=== PATIENT | female | born 1990 | race Caucasian/White ===

== ENCOUNTER 2022-10-11 16:55 | Observation (INO) | payer OTHER, SELFPAY ==
[2022-10-11 17:02] VITALS: BP 84/58; PULSE 67; RESP 18; TEMP 36.6; O2SAT 98; BMI 27.6
--- NOTE | 2022-10-11 17:38 | CT_ITS ---
[address] [address] Patient Name: PUSHPA STORY MRN: [id number] date: 1990 Sex: F Assigned Patient Location: ER Current Patient Location: ER Accession/Order Number: [id number] Exam Date: 10/11/2022 18:27 Report Date: 10/11/2022 18:56 At the request of: FRAN CRUZ Procedure: CT abdomen pelvis w con CT ABDOMEN AND PELVIS WITH CONTRAST: INDICATION: Abdominal pain. COMPARISON: None. TECHNIQUE: Helical CT images of the abdomen and pelvis were obtained after the administration of intravenous contrast. Dose reduction techniques were achieved by using automated exposure control and/or adjustment of mA and/or kV according to patient size and/or use of iterative reconstruction technique. FINDINGS: LOWER CHEST: The visualized lung bases are clear. LIVER: Unremarkable. GALLBLADDER AND BILIARY SYSTEM: Unremarkable. SPLEEN: Unremarkable. PANCREAS: Unremarkable. ADRENAL GLANDS: Unremarkable. KIDNEYS AND URETERS: The kidneys enhance symmetrically. There is no hydronephrosis. No focal renal lesions. BLADDER: Under distended. GASTROINTESTINAL TRACT: The appendix is dilated and fluid-filled measuring up to 1 cm with mild surrounding inflammatory changes compatible with acute appendicitis. No extraluminal air or fluid collections. No evidence of bowel obstruction. VASCULATURE: Unremarkable. RETROPERITONEUM AND LYMPH NODES: No lymphadenopathy or mass. PERITONEUM/MESENTERY: No abdominal ascites. No free air. PELVIS: A small amount of free fluid in the pelvis. No lymphadenopathy. BODY WALL: Tiny fat-containing umbilical hernia. BONES: No acute abnormality. CT/CT abdomen pelvis w con IMPRESSION: Acute appendicitis. No extraluminal air or fluid collections. Critical results were NOTIFIED by TELEPHONE BY Dr. Bertram Mittal MD to fran cruz [employer] At 10/11/2022 6:51 PM EDT. Electronically authenticated by: BERTRAM MITTAL Date: 10/11/2022 18:56
--- NOTE | 2022-10-11 17:38 | ED.ABDPAIN1 ---
HPI - Abdominal Pain General Chief Complaint: Abdominal Pain Stated Complaint: Adbominal Pain Time Seen by Provider: 10/11/22 17:06 Mode of arrival: walk-in Limitations: no limitations History of Present Illness HPI narrative: patient is a 31-year-old female presents to the emergency department for the evaluation of mid abdominal pain that began this morning. Patient reports nausea but has had no vomiting or diarrhea. No urinary symptoms. She has had no fevers or vomiting. She states while in the car driving from [employer], her vision went black and blacked out due to pain. She denies that she passed out, fell or lost consciousness. she is not concerned for . She apparently went to a different local emergency department but was told that there were fourteen people ahead of me and she could not wait with the amount of pain she is in. She is sitting upright on exam cart with her legs crossed at time of initial interview. She denies any previous abdominal surgeries, she denies any history of inflammatory bowel conditions or chronic gastrointestinal conditions. Related Data Home Medications Medication Instructions Recorded Confirmed phentermine 37.5 mg capsule 37.5 mg PO DAILY 10/11/22 10/11/22 Allergies Allergy/AdvReac Type Severity Reaction Status Date / Time No Known Drug Allergies Allergy Verified 10/11/22 17:02 Review of Systems ROS Constitutional Denies: fever or chills Ears, nose, mouth, and throat Denies: throat pain Cardiovascular Denies: chest pain Respiratory Denies: shortness of breath or cough Gastrointestinal Reports: abdominal pain and nausea; Denies: vomiting or diarrhea Musculoskeletal Denies: back pain or neck pain Integumentary/Breast Denies: rash Hematologic/Lymphatic Denies: easy bruising [facility] Social History Smoking status: Current every day smoker Exam Narrative Exam Narrative: Gen.: Awake, alert, in no distress Head: Normocephalic, atraumatic ENT: Moist mucous membranes Respiratory: No respiratory distress Gastrointestinal: Abdomen is soft, nondistended and diffusely tender to palpation of the mid abdomen with no guarding or rebound; no flank tenderness Extremities: Moves extremities equally, no injuries noted Psych: Normal mood and affect Neuro: No focal neuro deficit Skin: Warm, dry, intact Constitutional Vital Signs, click to edit/add: Last Vital Signs Temp 97.9 F 10/11/22 17:02 Pulse 67 10/11/22 17:02 Resp 18 10/11/22 17:02 BP 84/58 L 10/11/22 17:02 Pulse Ox 98 10/11/22 17:02 O2 Del Method Room Air 10/11/22 17:02 Course Vital Signs Vital signs: Vital Signs Temperature 97.9 F 10/11/22 17:02 Pulse Rate 67 10/11/22 17:02 Respiratory Rate 18 10/11/22 17:02 Blood Pressure 84/58 L 10/11/22 17:02 Pulse Oximetry 98 10/11/22 17:02 Oxygen Delivery Method Room Air 10/11/22 17:02 Temperature 97.9 F 10/11/22 17:02 Pulse Rate 67 10/11/22 17:02 Respiratory Rate 18 10/11/22 17:02 Blood Pressure 84/58 L 10/11/22 17:02 Pulse Oximetry 98 10/11/22 17:02 Oxygen Delivery Method Room Air 10/11/22 17:02 MDM - Abdominal Pain MDM Narrative Medical decision making narrative: patient treated with morphine, Levsin, Zofran and IV fluids with improvement of her blood pressure. She has mild leukocytosis, nitrite positive urinary tract infection noted on urine specimen. test is negative. CT of the abdomen and pelvis with IV contrast shows the patient has acute appendicitis, this was discussed with the radiologist over the phone. I contacted Dr. Alves for general surgery ([id number]) who will admit the patient to his service with surgery for appendicitis tomorrow morning. Clear liquid fluids are okay until midnight, patient reevaluated by attending physician, additional pain medication given prior to admission. Patient is stable with stable vital signs at time of admission to [facility]. Medical Records Attestation: I reviewed the patient's medical records. Lab Data Attestation: I reviewed the patient's lab results. Labs: Lab Results 10/11/22 10/11/22 Range/Units 17:35 17:44 WBC 14.8 H (4.0-11.0) 10^3/uL RBC 4.20 (4.20-5.40) 10^6/uL Hgb 12.4 (12.0-16.0) g/dL Hct 37.2 (36.0-48.0) % MCV 88.6 (81.0-99.0) fL MCH 29.5 (26.7-34.0) pg MCHC 33.3 (29.9-35.2) g/dL RDW 13.2 (11.0-15.0) % Plt Count 210 (150-450) 10^3/uL MPV 10.8 (9.5-13.5) fL Neut % (Auto) 89.3 H (43.0-75.0) % Lymph % (Auto) 3.0 L (20.5-60.0) % [place] % (Auto) 7.1 (1.7-12.0) % Eos % (Auto) 0.1 L (0.9-7.0) % Baso % (Auto) 0.1 L (0.2-2.0) % Neut # (Auto) 13.2 H (1.4-6.5) 10^3/uL Lymph # (Auto) 0.5 L (1.2-3.8) 10^3/uL [place] # (Auto) 1.1 H (0.3-0.8) 10^3/uL Eos # (Auto) 0.0 (0.0-0.7) 10^3/uL Baso # (Auto) 0.0 (0.0-0.1) 10^3/uL Abs Immat Gran (auto) 0.06 H (0.00-0.03) 10^3/uL Imm/Tot Granulo (auto) 0.4 (0.0-0.5) % Sodium 137 (136-145) mmol/L Potassium 3.3 L (3.5-5.1) mmol/L Chloride 103 (98-107) mmol/L Carbon Dioxide 24.9 (21.0-32.0) mmol/L Anion Gap 12.4 BUN 15.0 (7.0-18.0) mg/dL Creatinine 0.85 (0.55-1.02) mg/dL Est GFR ( Amer) >60 (>=60) Est GFR (Non-Af Amer) >60 (>=60) BUN/Creatinine Ratio 17.6 Glucose 134 H (74-106) mg/dL Lactate 1.5 (0.4-2.0) mmol/L Calcium 8.8 (8.5-10.1) mg/dL Total Bilirubin 1.0 (0.2-1.0) mg/dL AST 11 L (15-37) U/L ALT 17 (14-59) U/L Alkaline Phosphatase 58 (46-116) U/L Total Protein 7.5 (6.4-8.2) g/dL Albumin 4.5 (3.4-5.0) g/dL Globulin 3.0 g/dL Albumin/Globulin Ratio 1.5 Lipase 40.0 L (73.0-393.0) U/L Serum HCG, Qual Negative (NEGATIVE) Urine Color Yellow (YELLOW) Urine Clarity Slightly cloudy A (CLEAR) Urine pH 7.0 (5.0-9.0) Ur Specific [place] 1.020 (1.005-1.025) Urine Protein Trace (NEG/TRACE) mg/dL Urine Glucose (UA) Negative (NEGATIVE) mg/dL Urine Ketones >=80 A (NEGATIVE) mg/dL Urine Occult Blood Negative (NEGATIVE) Urine Nitrite Positive A (NEGATIVE) Urine Bilirubin Negative (NEGATIVE) Urine Urobilinogen 1.0 (0.2-1.0) EU/dL Ur Leukocyte Esterase Negative (NEGATIVE) Urine RBC None seen (0-2) #/HPF Urine WBC 0-2 A (NONE SEEN) #/HPF Ur Squamous Epith Cells Moderate A (NONE/RARE) #/LPF Urine Crystals None seen (None Seen) #/HPF Urine Bacteria Large A (NONE SEEN) #/HPF Urine Casts None seen (NONE SEEN) #/LPF Urine Mucus None seen (NONE SEEN) Ur Culture Indicated? Yes Imaging Data CT scan - abdomen: Attestation: I have reviewed the pertinent imaging results. Radiologist's impression: Procedure: CT abdomen pelvis w con CT ABDOMEN AND PELVIS WITH CONTRAST: INDICATION: Abdominal pain. COMPARISON: None. TECHNIQUE: Helical CT images of the abdomen and pelvis were obtained after the administration of intravenous contrast. Dose reduction techniques were achieved by using automated exposure control and/or adjustment of mA and/or kV according to patient size and/or use of iterative reconstruction technique. FINDINGS: LOWER CHEST: The visualized lung bases are clear. LIVER: Unremarkable. GALLBLADDER AND BILIARY SYSTEM: Unremarkable. SPLEEN: Unremarkable. PANCREAS: Unremarkable. ADRENAL GLANDS: Unremarkable. KIDNEYS AND URETERS: The kidneys enhance symmetrically. There is no hydronephrosis. No focal renal lesions. BLADDER: Under distended. GASTROINTESTINAL TRACT: The appendix is dilated and fluid-filled measuring up to 1 cm with mild surrounding inflammatory changes compatible with acute appendicitis. No extraluminal air or fluid collections. No evidence of bowel obstruction. VASCULATURE: Unremarkable. RETROPERITONEUM AND LYMPH NODES: No lymphadenopathy or mass. PERITONEUM/MESENTERY: No abdominal ascites. No free air. PELVIS: A small amount of free fluid in the pelvis. No lymphadenopathy. BODY WALL: Tiny fat-containing umbilical hernia. BONES: No acute abnormality. IMPRESSION: Acute appendicitis. No extraluminal air or fluid collections. Critical results were NOTIFIED by TELEPHONE BY Dr. Heather Mittal MD to fran meyer [facility] At 10/11/2022 6:51 PM EDT. Electronically authenticated by: HEATHER MITTAL Date: 10/11/2022 18:56 Discharge Plan Discharge Chief Complaint: Abdominal Pain Clinical Impression: Abdominal pain, Acute appendicitis Patient Disposition: Admitted as Observation Time of Disposition Decision: 19:07 Condition: Good Prescriptions / Home Meds: No Action phentermine 37.5 mg capsule 37.5 mg PO DAILY Rx Instructions: must administer 30 minutes before or 1-2 hours after breakfast
[2022-10-11 18:01] LABS: Bilirubin Urine NEGATIVE (NEGATIVE); Blood Urine NEGATIVE (NEGATIVE); Color Urine YELLOW (YELLOW); Glucose Urine UA NEGATIVE (NEGATIVE); Ketones Urine >=80 mg/dL (NEGATIVE); Leukocyte Esterase Urine NEGATIVE (NEGATIVE); Nitrite Urine POSITIVE (NEGATIVE); Protein Urine TRACE mg/dL (NEG/TRACE)
[2022-10-11] MEDS: ONDANSETRON PF 4 MG/2 ML VIAL IV ×2 (18:01→22:05)
[2022-10-11] MEDS: MORPHINE SULFATE 4 MG/ML VIAL IV (18:01)
[2022-10-11] MEDS: HYOSCYAMINE SULFATE 0.125 MG TAB.SUBL SL (18:01)
[2022-10-11] MEDS: 0.9 % SODIUM CHLORIDE 1,000 ML 1000 ML IV (18:01)
[2022-10-11 18:04] LABS: Basophils Percent Auto 0.1 % (0.2-2.0); Eosinophils Percent Auto 0.1 % (0.9-7.0); Hematocrit 37.2 % (36.0-48.0); Hemoglobin 12.4 g/dL (12.0-16.0); Immature Granulocytes Abs Auto 0.06 10^3/uL (0.00-0.03); Immature Granulocytes Pct Auto 0.4 % (0.0-0.5); Lymphocytes Absolute Auto 0.5 10^3/uL (1.2-3.8); Mean Corpuscular HGB Conc 33.3 g/dL (29.9-35.2); Mean Corpuscular Hemoglobin 29.5 pg (26.7-34.0); Mean Corpuscular Volume 88.6 fL (81.0-99.0); Mean Platelet Volume 10.8 fL (9.5-13.5); Monocytes Absolute Auto 1.1 10^3/uL (0.3-0.8); Monocytes Percent Auto 7.1 % (1.7-12.0); Neutrophils Absolute Auto 13.2 10^3/uL (1.4-6.5); Neutrophils Percent Auto 89.3 % (43.0-75.0); Platelet Count 210 10^3/uL (150-450); Red Cell Distribution Width 13.2 % (11.0-15.0); White Blood Count 14.8 10^3/uL (4.0-11.0)
[2022-10-11 18:05] LABS: Clarity Urine SLIGHTLY CLOUDY (CLEAR); Urine Microscopic Indicated YES; WBC Urine 0-2 #/HPF (NONE SEEN)
[2022-10-11 18:06] LABS: Bacteria Urine LARGE #/HPF (NONE SEEN); Cast Seen? NONE SEEN #/LPF (NONE SEEN); Crystals Seen? None Seen #/HPF (None Seen); Mucus Urine NONE SEEN (NONE SEEN); RBC Urine NONE SEEN #/HPF (0-2); Squamous Epithelial Cell Urine MODERATE #/LPF (NONE/RARE); Urine Culture Indicated YES
[2022-10-11 18:10] VITALS: BP 112/67; O2SAT 100
[2022-10-11 18:20] VITALS: O2SAT 100
[2022-10-11 18:23] LABS: Alanine Aminotransferase 17 U/L (14-59); Albumin Globulin Ratio 1.5; Albumin Level 4.5 g/dL (3.4-5.0); Alkaline Phosphatase 58 U/L (46-116); Anion Gap 12.4; Aspartate Amino Transferase 11 U/L (15-37); BUN Creatinine Ratio 17.6; Calcium 8.8 mg/dL (8.5-10.1); Carbon Dioxide 24.9 mmol/L (21.0-32.0); Chloride 103 mmol/L (98-107); Estimated GFR (African America >60 (>=60); Estimated GFR (Non-African Ame >60 (>=60); Glucose 134 mg/dL (74-106); HCG Qualitative NEGATIVE (NEGATIVE); Potassium 3.3 mmol/L (3.5-5.1); Sodium 137 mmol/L (136-145); Total Protein 7.5 g/dL (6.4-8.2)
[2022-10-11 18:34] LABS: Lactate/Lactic Acid 1.5 mmol/L (0.4-2.0)
[2022-10-11] MEDS: HYDROMORPHONE HCL 0.5 MG/0.5 ML SYRINGE IV (19:31)
[2022-10-11] MEDS: ERTAPENEM SODIUM 1 GM in 0.9 % SODIUM CHLORIDE 50 ML IV (19:31)
[2022-10-11 20:20] VITALS: BP 120/70; PULSE 74; RESP 16; TEMP 36.9; O2SAT 98; BMI 27.6
[2022-10-11] MEDS: MORPHINE SULFATE 2 MG/ML SYRINGE IV (22:05)
[2022-10-11] MEDS: DEXTROSE 5%-LACTATED RINGERS 1,000 ML 100 ML IV (22:05)
[2022-10-12] MEDS: MORPHINE SULFATE 2 MG/ML SYRINGE IV ×4 (01:54→09:36)
[2022-10-12 04:24] VITALS: BP 96/57; PULSE 70; RESP 16; TEMP 36.9; O2SAT 99
[2022-10-12] MEDS: ACETAMINOPHEN 325 MG TABLET 650 MG PO (08:33)
[2022-10-12] MEDS: DEXTROSE 5%-LACTATED RINGERS 1,000 ML 100 ML IV (08:36)
--- NOTE | 2022-10-12 10:10 | P.GSHP_ITS ---
History of Present Illness History of Present Illness Chief complaint: ACUTE APPENDICITIS UTI ADB PAIN Narrative: This patient is a 31-year-old female who presented to the emergency department yesterday approximately twenty-four hour history of abdominal pain. Initially this is somewhat generalized and localized to the right lower quadrant. Through the emergency department workup was undertaken. She does not have elevated white blood count of 14.8. CT of abdomen and pelvis revealed findings consistent with acute appendicitis. Patient was admitted and placed on IV antibiotics and will be taken for laparoscopic appendectomy. Review of Systems ROS Status of ROS 10 or more systems reviewed and unremarkable except as noted in history and below [facility] Family History (Updated 10/11/22 @ 21:00 by Wilma Cook) Grandfather Family history of COPD (chronic obstructive pulmonary disease) Family history of hypertension Family history of myocardial infarction Mother Family history of cancer Family history of stroke Father Family history of diabetes mellitus Social History (Updated 10/11/22 @ 21:05 by Wilma Cook) Within the past year, how often did you have a drink containing alcohol: monthly or less Within the past year, how many standard drinks containing alcohol did you have on a typical day: 3 or 4 Within the past year, how often did you have six or more drinks on one occasion: less than monthly Total score: 3 Score interpretation: A score of 3 or more indicates drinking is likely to affect patient's safety. 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 Known occupational exposures/hazards: No Highest level of school completed/degree received: high school graduate Do you want help with school or training: No Are you now , , , , never or living with a partner: living with partner In a typical week, how many times do you talk on the telephone with family, friends, or neighbors: 3 or more times per week How often do you get together with friends or relatives: once per week How often do you attend pentecostalism or roman catholic services: never Do you belong to any clubs or organizations such as pentecostalism groups unions, fraternal or athletic groups, or school groups: no Total score: 2 Score interpretation: A score of greater than or equal to 2 indicates the lowest level of social isolation. Little interest or pleasure in doing things: not at all Feeling down, depressed, or hopeless: not at all Feel stressed/tense/nervous/anxious/difficulty sleeping: to some extent Life stressors: unknown source of stress Due to disability, difficulty making decisions: No Do you think of yourself as: straight/heterosexual Gender Identity: female Meds Home Medications and Allergies Home Medications Medication Instructions Recorded Confirmed Type phentermine 37.5 mg capsule 37.5 mg PO DAILY 10/11/22 10/11/22 History Allergies Allergy/AdvReac Type Severity Reaction Status Date / Time No Known Drug Allergies Allergy Verified 10/11/22 17:02 Exam Constitutional Vital Signs, click to edit/add: Last Vital Signs Temp 98.4 F 10/12/22 04:24 Pulse 70 10/12/22 04:24 Resp 16 10/12/22 04:24 BP 96/57 10/12/22 04:24 Pulse Ox 99 10/12/22 04:24 O2 Del Method Room Air 10/12/22 04:24 Common normals: no apparent distress and average body habitus HENMT Common normals: normocephalic Eye Common normals: EOMs intact bilaterally Neck & C-Spine Common normals: full ROM and supple Respiratory Common normals: normal respiratory effort and clear to auscultation bilaterally Cardio Common normals: regular rate and regular rhythm GI Other: moderate tenderness with mild guarding in the right lower quadrant and suprapubic region Extremity Common normals: normal to inspection and full ROM Neuro Common normals: oriented x3 Psych Common normals: mental status grossly normal Results Results Abdomen CT scan report/results: image reviewed Results CBC w Differential: WBC 14.8 10^3/uL (4.0-11.0) H 10/11/22 17:44 RBC 4.20 10^6/uL (4.20-5.40) 10/11/22 17:44 Hgb 12.4 g/dL (12.0-16.0) 10/11/22 17:44 Hct 37.2 % (36.0-48.0) 10/11/22 17:44 MCV 88.6 fL (81.0-99.0) 10/11/22 17:44 MCH 29.5 pg (26.7-34.0) 10/11/22 17:44 MCHC 33.3 g/dL (29.9-35.2) 10/11/22 17:44 RDW 13.2 % (11.0-15.0) 10/11/22 17:44 Plt Count 210 10^3/uL (150-450) 10/11/22 17:44 MPV 10.8 fL (9.5-13.5) 10/11/22 17:44 Neut % (Auto) 89.3 % (43.0-75.0) H 10/11/22 17:44 Neut # (Auto) 13.2 10^3/uL (1.4-6.5) H 10/11/22 17:44 Lymph % (Auto) 3.0 % (20.5-60.0) L 10/11/22 17:44 [place] % (Auto) 7.1 % (1.7-12.0) 10/11/22 17:44 Eos % (Auto) 0.1 % (0.9-7.0) L 10/11/22 17:44 Baso % (Auto) 0.1 % (0.2-2.0) L 10/11/22 17:44 Assessment and Plan Assessment and Plan (1) Acute appendicitis: Assessment and Plan: With the above findings I recommended proceeding with laparoscopic appendectomy. The risks benefits options and potential complications of the procedure were discussed in detail with the patient and she agrees to proceed and consent was signed.
[2022-10-12] MEDS: LACTATED RINGER'S SOLUTION 1,000 ML 50 ML IV (10:11)
[2022-10-12] MEDS: BUPIVACAINE HCL 0.5% PF 50 MG/10 ML VIAL 20 ML INJ (11:27)
[2022-10-12 11:56] VITALS: BP 99/53; PULSE 96; RESP 17; TEMP 37.1; O2SAT 96
--- NOTE | 2022-10-12 12:02 | P.GSPRC_ITS ---
Date of procedure: 10/12/22 Indications for Procedure: Patient is a 31-year old female who presented to the emergency department with complaints of right lower quadrant pain. Workup including CT of the abdomen and pelvis revealed findings consistent with acute appendicitis. Laparoscopic appendectomy was recommended. The risks benefits options and potential complications of the procedure were discussed in detail with the patient and they agreed to proceed and consent was signed. Pre-op diagnosis: Acute appendicitis Post-op diagnosis: same Procedure: Laparoscopic appendectomy Anesthesia: GETA Surgeon: Juan Jose Alves Procedure Summary: The patient was brought to the operating room and placed in the supine position. Gen. anesthesia was induced and the patient was intubated. The patient had received IV antibiotics preoperatively. The abdomen was then prepped and draped in usual sterile fashion. Following local anesthesia small incision was made in the left upper quadrant. A small incision was made. A 5 mm port was then placed through this incision and advanced into the peritoneal cavity under laparoscopic guidance. The abdomen was then insufflated to 15 mmHg of carbon dioxide. The camera was introduced and video laparoscopy performed. Safe port site entry was confirmed. Following local anesthesia a 12 mm port was placed in the left lower quadrant under direct visualization and a 5 mm port was placed in the low midline again under direct visualization. The patient was then placed in Trendelenburg position and banked to the left. Exploration was then carried out in the right lower quadrant. A moderately inflamed appendix was readily identified. This was grasped and retracted anteriorly. The base of the mesoappendix was then transected using the LigaSure device. The base of the appendix at the cecum was now clearly identified. An Endo RICH stapler was then placed across the base the appendix and fired transecting the appendix. The staple line was secure and hemostatic. There was noted to be some purulent fluid in the pelvis and in the left pericolic gutter. This was aspirated. The appendix was then placed in a retrieval bag and then brought out through the 12 mm port site in its entirety. Hemostasis was noted. No other abnormalities were identified. The abdomen was desufflated and the ports removed. Skin incisions w ere closed with subcuticular sutures of 4-0 Vicryl. Sterile dressings were applied. Sponge needle and instruments counts were correct at the end of procedure. The patient tolerated the procedure well and was transferred to the recovery area in stable condition.? Estimated blood loss (mL): 2 Specimens: Appendix Complications: No
[2022-10-12 12:26] VITALS: BP 100/51; PULSE 99; RESP 18; O2SAT 97
[2022-10-12 12:30] VITALS: BP 86/56; PULSE 97; RESP 18; TEMP 36.6; O2SAT 94
--- NOTE | 2022-10-12 12:35 | PC.NURSE ---
Patient has more drainage on telfa at time of transport to [facility]. Ashely TERRY was updated
[2022-10-12 13:36] VITALS: BP 91/58; PULSE 88; RESP 18; TEMP 36.7; O2SAT 93
[2022-10-12] MEDS: HYDROCODONE/ACETAMINOPHEN 5-325 MG TABLET 1 TAB PO (14:31)
--- NOTE | 2022-10-13 11:49 | CM.DCFOLLOWU ---
Person spoke with: patient How are you feeling? sore How is your pain? some pain Did you understand your discharge instructions? yes Do you have any questions about your discharge instructions? no Were you given any prescriptions at discharge? yes Were you able to get your prescriptions filled? yes Do you understand how to take your medications as ordered? yes Do you have any questions about your follow up appointment and do you plan to keep your follow up appointment? no questions and keeping follow up appointment scheduled Is there anything else that you would like to discuss? no Questions/Comments/Concerns/Other: Feels she received great care from check in until discharge, very pleased with all doctors/nurses.
== END 2022-10-12 14:53 | disposition home or self-care (01) ==
LOC: ER 19:59 → MS 20:19
PROVIDERS: Physician Assistant; Admitting Provider Surgery; Emergency Provider Emergency Medicine; Family Provider Family Medicine; Visit Provider Surgery
PROC: (CPT 840; principal; 2022-10-12 11:25)
DX: K35.80 Unspecified acute appendicitis (principal); N39.0 Urinary tract infection, site not specified; B96.1 Klebsiella pneumoniae [K. pneumoniae] as the cause of diseases classified elsewhere
CPT/HCPCS: 44970; 36415; 74177; 80053; 81001; 81003; 83605; 83690; 84703; 85025; 87086; 87150; 87186; 88304; 96365; 96375; 96376; 99285; G0378; J1170; J1335; J2704; Q9967